=== PATIENT | female | born 1960 | race Caucasian/White ===

== ENCOUNTER → 2017-06-19 | Outpatient (CLI) | payer OTHER ==
[~2017-06-19] MED LIST: ADVIL MIGRAINE200 MG PO; ALBUTEROL; CARDIZEM LA360 MG PO; CIPROFLOXACIN500 M1 PO; CLONAZEPAM; COLCHICINE 0.60.6 M2 PO; DIOVAN160 MG PO; DYAZIDE 37.5-21 EACH PO; GLUCOPHAGE500 MG PO; IBUPROFEN 800800 M1 PO; INDOMETHACIN 2525 MG PO; LEXAPRO20 MG PO; MEDROL DOSPAK21 TA1 PO; NORCO 5-325 TA1 EACH PO; PRILOSEC 20 MG20 MG; PROAIR HFA8.5 GM IH; PYRIDIUM200 MG PO; SEREVENT DISKU50 MCG IH; SINGULAIR 10 MG10 MG PO; TYLENOL SINUS1 EAC1 PO; ZPAK PO; [UNRECOGNIZED DRUG - OTHER] IM
--- NOTE | 2017-06-19 14:41 | 2DMMODE ---
[place] [address] 2 D/M-MODE ECHOCARDIOGRAM Name: KARYN MCCORMICK Room: [facility]#: [id number] Admission: 06/19/17 Attend Phys: Margarito Clemons MD Discharge: Date of : 56 Date of Service: 06/19/17 1441 Report #: [id number] THIS REPORT FOR: //name// APPROVED REPORT Study performed: 06/19/2017 13:42:14 EXAM: Comprehensive 2D, Doppler, and color-flow Echocardiogram BSA: 2.51 HR: 96 bpm Other Information Study Quality: Adequate Indications Hypertension/HDD 2D Dimensions LVEF(%): 71.57 (>50%) IVSd: 13.06 (7-11mm) LVOT Diam: 20.95 (18-24mm) LVDd: 48.40 mm PWd: 10.94 (7-11mm) Ascending Ao: 30.64 (22-36mm) LVDs: 28.61 (25-40mm) Aortic Root: 29.42 mm Escalera's LVEF: 71.57 % Volumes Left Atrial Volume (Systole) LA ESV Index: 11.40 mL/m2 Aortic Valve AoV Peak Bud.: 1.40 m/s AO Peak Gr.: 7.80 mmHg LVOT Max P.31 mmHg AO Mean Gr.: 3.91 mmHg LVOT Mean P.03 mmHg LVOT Max V: 1.04 m/s AO V2 VTI: 19.60 cm LVOT Mean V: 0.65 m/s HEATHER (VTI): 2.78 cm2 LVOT V1 VTI: 15.81 cm Mitral Valve E/A Ratio: 0.76 MV Decel. Time: 198.91 ms MV E Max Bud.: 0.60 m/s MV PHT: 57.68 [place] [address] 2 D/M-MODE ECHOCARDIOGRAM Name: KARYN MCCORMICK Brian Room: [facility]#: [id number] Admission: 06/19/17 Attend Phys: Margarito Clemons MD Discharge: Date of : 56 Date of Service: 06/19/17 1441 Report #: [id number] MVA (PHT): 3.81 cm2 TDI E/Lateral E': 5.45 E/Medial E': 6.67 Medial E' Bud.: 0.09 m/s Lateral E' Ubd.: 0.11 m/s Pulmonary Valve PV Peak Bud.: 1.11 m/s PV Peak Gr.: 4.89 mmHg Left Ventricle The left ventricle is normal size. There is normal LV segmental wall motion. There is normal left ventricular wall thickness. Left ventricular systolic function is normal. The left ventricular ejection fraction is within the normal range. LVEF is 65%. Grade I - abnormal relaxation pattern. Right Ventricle The right ventricle is normal size. The right ventricular systolic function is normal. Atria The left atrium size is normal. The right atrium size is normal. Aortic Valve Mild aortic valve sclerosis. Mild aortic regurgitation. There is no aortic valvular stenosis. Mitral Valve The mitral valve is normal in structure. Trace mitral regurgitation. No evidence of mitral valve stenosis. Tricuspid Valve The tricuspid valve is normal in structure. There is no tricuspid valve regurgitation noted. Pulmonic Valve The pulmonary valve is normal in structure. Trace pulmonic regurgitation. Great Vessels The aortic root is normal in size. IVC is normal in size and collapses with >50% [place] [address] 2 D/M-MODE ECHOCARDIOGRAM Name: KARYN MCCORMICK Brian Room: [facility]#: [id number] Admission: 06/19/17 Attend Phys: Margarito Clemons MD Discharge: Date of : 56 Date of Service: 06/19/17 1441 Report #: [id number] There is no pericardial effusion. <Conclusion> The left ventricle is normal size. There is normal left ventricular wall thickness. Left ventricular systolic function is normal. The left ventricular ejection fraction is within the normal range. LVEF is 65%. Grade I - abnormal relaxation pattern. The right ventricle is normal size. The left atrium size is normal. Mild aortic valve sclerosis. Mild aortic regurgitation. There is no aortic valvular stenosis. The mitral valve is normal in structure. Trace mitral regurgitation. The tricuspid valve is normal in structure. IVC is normal in size and collapses with >50% inspiration There is no pericardial effusion. There is normal LV segmental wall motion. <ELECTRONICALLY SIGNED> By: Kike George MD, [facility] 06/19/17 1441 [id number] Kike George MD, FACC /INF
== END ==
LOC: M.CRD 11:16
DX: I10 Essential (primary) hypertension (principal); I35.1 Nonrheumatic aortic (valve) insufficiency

== ENCOUNTER → 2017-11-01 | Outpatient (CLI) | payer OTHER ==
[2017-11-01 09:37] LABS: HEMATOCRIT 39.8 % (37.0-47.0); HEMOGLOBIN 13.8 gm/dL (12.0-15.0); MCH 32.8 pg (26.0-34.0); MCHC 34.8 g/dL (28.0-37.0); MCV 94.4 fL (80.0-100.0); MPV 7.3 fl. (7.2-11.1); RBC 4.22 mil/uL (4.20-5.00); RDW-CV 12.7 % (10.5-14.5); WBC 4.5 thou/uL (4.0-11.0)
[2017-11-01 09:41] LABS: CALCIUM 9.4 mg/dL (8.5-10.1); CREATININE 0.9 mg/dL (0.6-1.3); POTASSIUM 3.8 mmol/L (3.5-5.1)
== END ==
LOC: M.LAB 09:19
DX: D69.6 Thrombocytopenia, unspecified (principal)

== ENCOUNTER → 2018-01-01 | Outpatient (CLI) | payer OTHER | LOC: M.RAD 13:01 | DX: Z12.31 Encounter for screening mammogram for malignant neoplasm of breast (principal); J45.909 Unspecified asthma, uncomplicated; I10 Essential (primary) hypertension; F32.9 Major depressive disorder, single episode, unspecified; C18.9 Malignant neoplasm of colon, unspecified ==

== ENCOUNTER 2018-06-29 00:27 | Emergency (ER) | payer BC, OTHER ==
[~2018-06-29] VITALS: Ht 177.8 cm; Wt 133.6 kg
[2018-06-29 00:41] VITALS: BP 136/61
[2018-06-29] MEDS ORDERED: ZOFRAN ODT4 MG DISSOLVE (00:56)
[2018-06-29] MEDS ORDERED: SOMATULINE60 MG/0.2 (00:56)
[2018-06-29 02:08] LABS: URINE BILIRUBIN NEGATIVE (Negative); URINE BLOOD NEGATIVE (Negative); URINE CLARITY CLEAR; URINE COLOR YELLOW; URINE GLUCOSE-RANDOM 2+ (Negative); URINE KETONES TRACE (Negative); URINE LEUKOCYTES-REFLEX NEGATIVE (Negative); URINE NITRITE-REFLEX NEGATIVE (Negative); URINE PROTEIN NEGATIVE (Negative); URINE SPECIFIC GRAVITY >= 1.030 (1.005-1.030); URINE UROBILINOGEN 0.2 E.U./dl (0.2-1.0)
[2018-06-29] MEDS ORDERED: PERCOCET 7.5-31 EACH PO (04:23)
[2018-06-29] MEDS ORDERED: FLEXERIL PO (04:23)
[2018-06-29 04:44] VITALS: BP 150/69
== END 2018-06-29 04:47 | disposition home or self-care (01) ==
LOC: M.ERS 00:27 → M.TBA-ER 04:14 → M.ERS 04:14
PROVIDERS: Emergency Medicine
DX: M54.5 Low back pain (principal); J45.909 Unspecified asthma, uncomplicated; F32.9 Major depressive disorder, single episode, unspecified; I10 Essential (primary) hypertension; Z88.8 Allergy status to other drugs, medicaments and biological substances; Z88.1 Allergy status to other antibiotic agents; Z88.5 Allergy status to narcotic agent; Z85.038 Personal history of other malignant neoplasm of large intestine

== ENCOUNTER → 2018-07-01 | Outpatient (CLI) | payer BC, OTHER ==
[~2018-07-01] MED LIST changes: +FLEXERIL PO; +HYDROCHLOROTHIA25 M2 PO; +PERCOCET 7.5-31 EACH PO; +PREDNISONE 10 M10 MG PO; +SOMATULINE60 MG/0.2; +ZOFRAN ODT4 MG DISSOLVE; +ZYRTEC10 M5 PO
== END ==
LOC: M.MRI 16:42
DX: M47.26 Other spondylosis with radiculopathy, lumbar region (principal); M51.27 Other intervertebral disc displacement, lumbosacral region; J45.909 Unspecified asthma, uncomplicated; I10 Essential (primary) hypertension; Z88.8 Allergy status to other drugs, medicaments and biological substances; Z88.5 Allergy status to narcotic agent; Z90.49 Acquired absence of other specified parts of digestive tract; Z90.710 Acquired absence of both cervix and uterus; Z98.84 Bariatric surgery status; Z82.49 Family history of ischemic heart disease and other diseases of the circulatory system; Z83.3 Family history of diabetes mellitus; Z82.5 Family history of asthma and other chronic lower respiratory diseases

== ENCOUNTER 2018-07-02 13:52 | Emergency (ER) | payer BC, OTHER ==
[~2018-07-02] VITALS: Ht 177.8 cm; Wt 131.5 kg
[~2018-07-02 13:52] MED LIST changes: -HYDROCHLOROTHIA25 M2 PO; -PREDNISONE 10 M10 MG PO; -ZYRTEC10 M5 PO
[2018-07-02] MEDS ORDERED: PREDNISONE 10 M10 MG PO (14:04)
[2018-07-02] MEDS ORDERED: HYDROCHLOROTHIA25 M2 PO (14:05)
[2018-07-02] MEDS ORDERED: ZYRTEC10 M5 PO (14:05)
[2018-07-02 17:59] VITALS: BP 161/83
== END 2018-07-02 17:59 | disposition short-term general hospital (02) ==
LOC: M.ERS 13:52
DX: M54.41 Lumbago with sciatica, right side (principal); J45.909 Unspecified asthma, uncomplicated; F32.9 Major depressive disorder, single episode, unspecified; I10 Essential (primary) hypertension; Z88.8 Allergy status to other drugs, medicaments and biological substances; Z88.1 Allergy status to other antibiotic agents; Z88.5 Allergy status to narcotic agent; Z85.038 Personal history of other malignant neoplasm of large intestine

== ENCOUNTER → 2018-08-13 | Outpatient (CLI) | payer OTHER, BC ==
[~2018-08-13] MED LIST changes: +HYDROCHLOROTHIA25 M2 PO; +PREDNISONE 10 M10 MG PO; +ZYRTEC10 M5 PO
--- NOTE | 2018-08-13 14:35 | 2DMMODE ---
[place] [address] 2 D/M-MODE ECHOCARDIOGRAM Name: JACEKARYN ELAYNE Room: [facility]#: [id number] Admission: 08/13/18 Attend Phys: Analisa West Discharge: Date of : 56 Date of Service: 08/13/18 1435 Report #: [id number] THIS REPORT FOR: //name// APPROVED REPORT Study performed: 08/13/2018 13:02:50 EXAM: Comprehensive 2D, Doppler, and color-flow Echocardiogram Patient Location: Out-Patient BSA: 2.38 HR: 110 bpm BP: 120/60 mmHg Other Information Study Quality: Good Indications Murmur Dyspnea 2D Dimensions IVSd: 12.87 (7-11mm) LVOT Diam: 20.49 (18-24mm) LVDd: 42.69 mm PWd: 11.40 (7-11mm) Ascending Ao: 34.06 (22-36mm) LVDs: 24.47 (25-40mm) Aortic Root: 30.83 mm Volumes Left Atrial Volume (Systole) LA ESV Index: 10.60 mL/m2 Aortic Valve AoV Peak Bud.: 1.28 m/s AO Peak Gr.: 6.53 mmHg LVOT Max P.41 mmHg AO Mean Gr.: 3.49 mmHg LVOT Mean P.37 mmHg LVOT Max V: 1.05 m/s AO V2 VTI: 16.55 cm LVOT Mean V: 0.72 m/s HEATHER (VTI): 2.87 cm2 LVOT V1 VTI: 14.42 cm Mitral Valve E/A Ratio: 0.60 MV Decel. Time: 171.97 ms MV E Max Bud.: 0.47 m/s MV PHT: 49.87 [place] [address] 2 D/M-MODE ECHOCARDIOGRAM Name: JACEKARYN ELAYNE Room: [facility]#: [id number] Admission: 08/13/18 Attend Phys: Analisa West Discharge: Date of : 56 Date of Service: 08/13/18 1435 Report #: [id number] MVA (PHT): 4.41 cm2 TDI E/Lateral E': 6.71 E/Medial E': 5.88 Medial E' Bud.: 0.08 m/s Lateral E' Bud.: 0.07 m/s Pulmonary Valve PV Peak Bud.: 1.10 m/s PV Peak Gr.: 4.84 mmHg Left Ventricle The left ventricle is normal size. There is normal LV segmental wall motion. There is normal left ventricular wall thickness. Left ventricular systolic function is normal. LVEF is 65-70%. Grade I - abnormal relaxation pattern. Right Ventricle The right ventricle is normal size. The right ventricular systolic function is normal. Atria The left atrium size is normal. The right atrium size is normal. Aortic Valve The aortic valve is normal in structure. Mild aortic regurgitation. There is no aortic valvular stenosis. Mitral Valve The mitral valve is normal in structure. There is no mitral valve regurgitation noted. No evidence of mitral valve stenosis. Tricuspid Valve The tricuspid valve is normal in structure. There is no tricuspid valve regurgitation noted. Pulmonic Valve The pulmonary valve is normal in structure. Mild pulmonic regurgitation. Great Vessels The aortic root is normal in size. IVC is normal in size and collapses >50% with inspiration. Pericardium There is no peric[place] [address] 2 D/M-MODE ECHOCARDIOGRAM Name: KARYN MCCORMICK ELAYNE Room: [facility]#: [id number] Admission: 08/13/18 Attend Phys: Analisa West Discharge: Date of : 56 Date of Service: 08/13/18 1435 Report #: [id number] <Conclusion> The left ventricle is normal size. There is normal left ventricular wall thickness. Left ventricular systolic function is normal. LVEF is 65-70%. Grade I - abnormal relaxation pattern. Mild aortic regurgitation. Mild pulmonic regurgitation. <ELECTRONICALLY SIGNED> By: Ryder Molina MD, FACC 08/13/18 1435 1435 1435 Ryder Molina MD, FACC /INF
== END ==
LOC: M.CRD 12:54
DX: I08.8 Other rheumatic multiple valve diseases (principal); J45.909 Unspecified asthma, uncomplicated; I10 Essential (primary) hypertension; E11.9 Type 2 diabetes mellitus without complications; Z88.8 Allergy status to other drugs, medicaments and biological substances; Z88.1 Allergy status to other antibiotic agents; Z88.5 Allergy status to narcotic agent; Z79.84 Long term (current) use of oral hypoglycemic drugs

== ENCOUNTER → 2018-10-10 | Outpatient (CLI) | payer OTHER, BC ==
[~2018-10-10] MED LIST changes: +AMITRIPTYLINE H10 M3 PO; +B12INJ IM; +CARDIZEM CD360 MG PO; +COZAAR 25 MG TA25 M1 PO; +FOLGARD TABLET1 EAC1 PO; +METFORMIN HCL500 MG PO; +NEURONTIN 300300 M1 PO; +TYLENOL EXTRA500 MG PO; +ZYLOPRIM300 MG PO
--- NOTE | ~2018-10-10 | PAINCON ---
[address] [address] PAIN MANAGEMENT CONSULTATION Name: JACEKARYNMATTHIEU HOLLY Room: [facility] Negron#: [id number] Admission: 10/10/18 Attend Phys: Jenifer Gonzalez MD Discharge: Date of : 56 Report #: [id number] THIS REPORT FOR: //name// CC: Analisa Gonzalez DATE OF SERVICE: 10/10/2018 CHIEF COMPLAINT: Right hip discomfort and low back pain. HISTORY OF PRESENT ILLNESS: The patient is a 58-year-old female who has been referred to the pain clinic for evaluation. The patient had an episode of low back pain in August. She describes it as severe with spasms. She has had some jolting pain, which radiates from her right thigh. The patient noticed a few weeks ago, pain, which was quite severe. It continued to be problematic. She went to the Emergency Room. An MRI was performed. The patient's pain still was quite problematic. No obvious cause was noted. Because of the severity of her pain, she sought additional treatment. She was seen at [facility]. She was evaluated by a neurosurgeon as well as an orthopedic surgeon. No significant pathology, which would warrant surgery was noted at those times. Because of the pain that was radiating down the lateral portion of her leg, the orthopedic resident felt that she was suffering from meralgia paresthetica. The pain physician, Dr. Perales was contacted. After a period of time, a block of the right lateral femoral cutaneous nerve was performed. She noticed some significant improvement in her pain. She is having less discomfort in this area. She still has some numbness and tingling in the distribution of the left lateral femoral nerve. She continues to have some pain in her low back. She states that she has been told that she has some degenerative joint disease involving her back. She has been using gabapentin. She was using it 300 mg t.i.d. The middle dose in the afternoon was causing some increased sedation. She is now using it 300 mg twice daily. She rarely uses Percocet. Did not find that this had significant benefit on the current pain. She has history of cancer. States that she also has problems with low platelets. Platelets are about 100,000 at this juncture. She is being treated for about the third course for a urinary tract infection. She was on 60 mg prednisone dosing and has been titrated from that. ALLERGIES: AMLODIPINE CAUSES SWELLING, CEPHALOSPORINS. NOT TOLERATED WELL WERE CIPRO AND MORPHINE. CURRENT MEDICATIONS: Percocet has been used rarely, Tylenol p.r.n., gabapentin 300 mg 1 p.o. b.i.d., Lexapro 20 mg, Cardizem 360 mg, hydrochlorothiazide 25 mg every other day, metformin 1000 mg, Klonopin 1 mg. MEDICATIONS: Zofran 4 mg p.r.n., Imodium p.r.n., vitamin B12 1000 mg every 3-1/2 months, vitamin D3 1000 mg 3-1/2 months, losartan 50 mg b.i.d. 18 months, [address] [place] [address] PAIN MANAGEMENT CONSULTATION Name: KARYN MCCORMICK Room: [facility]#: [id number] Admission: 10/10/18 Attend Phys: Jenifer Gonzalez MD Discharge: Date of : 56 Report #: [id number] allopurinol 300 mg, Singulair 10 mg, Bactrim for urinary tract 7 days. Cancer medicine, lanreotide injections q.4 weeks. 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 PAST SURGICAL HISTORY: 1. In 2007; colon resection, liver ablation, carcinoid cancer. 2. Cholecystectomy in 1978, tonsillectomy at age 3 inches, appendectomy at age 11, gastric sleeve in 2013. 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 REVIEW OF SYSTEMS: Weight change, occasional headache, wears glasses, cataracts/glaucoma, shortness of breath on walking, occasional wheezing with asthma, shortness of breath, nausea, abdominal pain, stiffness of the joints, joint pain, weakness of muscles and joints, muscle cramps, back pain, itching from some medications, frequent recurring headaches, lightheadedness, dizziness, numbness and tingling sensation, depression, easy bruising, past transfusions. PAIN CLINIC ASSESSMENT AND PQRS 1. History of osteoarthritis. The patient is not being treated for osteoarthritis. She has not been treated for rheumatoid arthritis. 2. Height 5 feet 10 inches, weight 284 pounds, BMI is 40. 3. Vital signs: Blood pressure 145/72, heart rate 106, respiratory rate 18, room air saturation 95%, temperature 98.2. 4. Pain intensity 10. 5. Fall history: The patient has not fallen in the last 3 months. 6. Blood thinner. The patient is not on a blood thinning medication, but does have low platelets above 100,000. 7. Hypertension. The patient is being treated for hypertension. 8. Opioids greater than 6 weeks. The patient uses opioid medication somewhat on occasion. 9. Risk assessment tool, low for opioid use. 10. Functional assessment tool, 46/70. 11. Recreational drug use, the patient denies. 12. Tobacco: The patient denies use of tobacco. 13. Alcohol: The patient denies use of alcoholic beverages. PHYSICAL EXAMINATION: GENERAL: The patient is a well-developed, well-nourished, white female. Morbidly obese. She is alert and oriented x 3. Affect is appropriate. Speech is fluent. HEENT: Normocephalic, atraumatic. Extraocular eye [place] [address] PAIN MANAGEMENT CONSULTATION Name: KARYN MCCORMICK Room: [facility]#: [id number] Admission: 10/10/18 Attend Phys: Jenifer Gonzalez MD Discharge: Date of : 56 Report #: [id number] nonicteric. Mucous membranes are moist. NECK: Without adenopathy or JVD. HEART: Regular rate. ABDOMEN: Nontender. Bowel sounds present. EXTREMITIES: Upper extremity muscle strength judged to be 5/5 for the major muscle groups in the upper extremity. Deep tendon reflexes are trace for the biceps bilaterally. The patient without significant scoliosis, kyphosis or lordosis. Notes some pain and discomfort in the lower portion of her back near the left as well as the right L4 paraspinous muscle area down to the sacrum. The patient has some decreased sensation in the area of the right lateral femoral cutaneous nerve. Had pain that radiated from the lateral hip area down to the anterior portion of her thigh and this is less problematic. She has been experiencing some lancinating pain and is not having that as often. The patient has some difficulty rising to her toes. Has some difficulty rising on her heels. Deep tendon reflexes are trace to absent at the knees bilaterally. Carson's maneuver notes some increased discomfort in the right low back area, not as problematic on the left. IMPRESSION: 1. Meralgia paresthetica improved after a right lateral femoral cutaneous nerve block. 2. Diabetes. 3. Bruising tendencies. 4. Low platelets. 5. Asthma. 6. Hypertension. 7. Liver disease. 8. Hepatitis. 9. Gallbladder disease. 10. Colon problems. 11. Arthritis. 12. Cancer. 13. Crohn's disease. 14. Essential hypertension. 15. Metastatic malignant neuroendocrine tumor to the liver. 16. Morbid obesity. RECOMMENDATIONS: We discussed treatment options with the patient. She feels that her pain has improved after the lateral femoral cutaneous block. Still has some shooting/lancinating pain. At this point, I think it would be reasonable to try Elavil. This medication has been quite helpful in painful conditions, particularly with lancinating pain. We will have her try 10 mg and increase this as we have directed. Hopefully, she will note that her pain improves as well as an improvement in her sleep. She notes that the gabapentin medication taking it 3 times daily cause some somnolence in the afternoon. She will take the 300 mg in the morning and takes 600 mg at night[place] [address] PAIN MANAGEMENT CONSULTATION Name: KARYN MCCORMICK Room: [facility] Negron#: [id number] Admission: 10/10/18 Attend Phys: Jenifer Gonzalez MD Discharge: Date of : 56 Report #: [id number] to find that the medication is helpful, but still has some problems with sleepiness, we will consider trying use of Gralise. A script for gabapentin 300 mg 1 p.o. t.i.d. has been rewritten for 90 days. The patient will call us if she has any concerns. A script for oxycodone 5/325 1 p.o. b.i.d. or q.4 hours p.r.n. has been written as well. The patient has been given a script for amitriptyline 10 mg 60 tablets. We would like to thank you for letting us participate in her care. We hope she continues to improve. By: [id number]. Jonny Gonzalez MD /JOSÉ MIGUEL
== END ==
LOC: M.PC 11:50
DX: G57.11 Meralgia paresthetica, right lower limb (principal); E11.9 Type 2 diabetes mellitus without complications; J45.909 Unspecified asthma, uncomplicated; I10 Essential (primary) hypertension; K76.9 Liver disease, unspecified; C7A.8 Other malignant neuroendocrine tumors; K82.9 Disease of gallbladder, unspecified; C22.8 Malignant neoplasm of liver, primary, unspecified as to type; M19.90 Unspecified osteoarthritis, unspecified site; E66.9 Obesity, unspecified; K75.9 Inflammatory liver disease, unspecified

== ENCOUNTER → 2018-10-22 | Outpatient (CLI) | payer OTHER, BC ==
[~2018-10-22] MED LIST changes: +AMITRIPTYLINE H25 M2 PO
--- NOTE | 2018-10-30 16:33 | PAINCON ---
[address] [address] PAIN MANAGEMENT CONSULTATION Name: JACEKARYNMATTHIEU HOLLY Room: [facility].R.#: [id number] Admission: 10/22/18 Attend Phys: Jenifer Gonzalez MD Discharge: Date of : 56 Report #: [id number] THIS REPORT FOR: //name// CC: Analisa Gonzalez DATE OF SERVICE: 10/22/2018 CHIEF COMPLAINT: Pain in the right side of the leg with numbness. HISTORY: The patient is a 58-year-old female who has been followed in the pain clinic because of chronic pain involving the right leg. The patient states that she is having pain that is radiating down the right side. There is a jolting type of discomfort. It is numb, but painful. She underwent an injection at [facility]. A lateral femoral nerve injection was performed by the pain doctor. The pain improved. She has noticed some increasing pain with numbness and tingling again. She has returned to the pain clinic with the hope of undergoing another injection to help quell and decrease the pain and discomfort. She has a history of cancer. Her platelets have been somewhat low. They are about 75,000 today. ALLERGIES: AMLODIPINE CAUSES SWELLING, CEPHALOSPORIN, NOT TOLERATED WELL. MEDICATIONS: Cipro and morphine. CURRENT MEDICATIONS: Percocet has been used rarely, Tylenol p.r.n., gabapentin 300 mg b.i.d., Lexapro 20 mg, Cardizem 360 mg, hydrochlorothiazide 25 mg daily, metformin 1000 mg, Klonopin 1 mg, amitriptyline a total of 40 mg at bedtime. Zofran 4 mg p.r.n., Imodium p.r.n., vitamins B12 1000 mg every 3-1/2 months, vitamin D3 3-1/2 months, losartan 50 mg b.i.d. 18 months, allopurinol 300 mg, Singulair 10 mg, Bactrim for urinary tract infections in the past, cancer medications, lanreotide injections every 4 weeks. PAIN CLINIC ASSESSMENT AND PQRS: 1. The patient is not being treated for osteoarthritis. The patient is not being treated for rheumatoid arthritis. 2. Height 5 feet 10 inches, weight 288 pounds, BMI is 41.1. 3. Vital Signs: Blood pressure 149/70, heart rate 95, respiratory rate 18, temperature 98.2. 4. Pain intensity, 3-4/10. 5. Fall history. The patient has not fallen in the last 3 months. 6. Blood thinner. The patient is not on a blood thinning medication. 7. Platelets. The patient has platelets down from 100,000-75,000. 8. Hypertension. The patient is being treated for hypertension. 9. Opioids greater than 6 weeks. The patient is [place] [address] PAIN MANAGEMENT CONSULTATION Name: KARYN MCCORMICK [id number] Admission: 10/22/18 Attend Phys: Jenifer Gonzalez MD Discharge: Date of : 56 Report #: [id number] 10. Risk assessment tool, low for opioid use. 11. Functional assessment tool, . 12. Recreational drug use. The patient denies. 13. Tobacco: The patient denies use of tobacco. 14. Alcohol: The patient denies use of alcoholic beverages. PHYSICAL EXAMINATION: GENERAL: The patient is a well-developed, well-nourished, morbidly obese, white female, appears her stated age. She is alert and oriented x 3. Her affect is appropriate. Speech is fluent. HEENT: Normocephalic, atraumatic. Extraocular eye muscles intact. Sclerae nonicteric. Mucous membranes are moist. NECK: Without adenopathy or JVD. HEART: Regular rate. ABDOMEN: Protuberant. Bowel sounds present. MUSCULOSKELETAL: Upper extremity muscle strength is judged to be 5/5 for the major muscle groups in the upper extremity. Deep tendon reflexes trace for the biceps. The patient has pain and discomfort in the right lateral portion of her leg with numbness and pain. Muscle strength to the lower extremities judged to be 5/5 for the major muscle groups in the lower extremity and 5/5 for the major muscle groups in the upper extremity. IMPRESSION: 1. Meralgia paresthetica improved with lateral femoral cutaneous nerve block. 2. Diabetes. 3. Easy bruising tendencies. 4. Low platelets. 5. Asthma. 6. Hypertension. 7. Liver disease. 8. Hepatitis. 9. Gallbladder disease. 10. Colon problems. 11. Arthritis. 12. Cancer. 13. Crohn's disease. 14. Essential hypertension. 15. Metastatic malignant neuroendocrine tumor to the liver. 16. Morbid obesity. RECOMMENDATIONS: We discussed treatment options with the patient. At this juncture, she feels that the Elavil medication has been helpful. She is taking 40 mg daily. Notes that there has been some improvement in the pain. She has had no complications from the Elavil use. She finds that the opioid medications can be helpful. Oxycodone 7.5 mg has been helpful with the pain. She feels that overall things are improving. She would like to proceed with a [address] [place] [address] PAIN MANAGEMENT CONSULTATION Name: JACEKARYN HOLLY Room: [facility] M.Aaron.#: [id number] Admission: 10/22/18 Attend Phys: Jenifer Gonzalez MD Discharge: Date of : 56 Report #: [id number] femoral cutaneous injection today. We have discussed the risks and benefits of the procedure. They include but are not limited to infection, worsening of pain, no improvement in pain, bleeding, infection, and the patient elects to proceed. PROCEDURE NOTE: The patient was taken to the procedure area. She was then assisted in getting on the table. She was laid in the supine position. Her abdomen was sterilely prepped on the right side with a chlorhexidine solution and allowed to dry. The anterior superior iliac spine was noted on the right. Palpation in this area did indicate the spinous process area of the superior iliac spine on the right. Approximately 2 cm medial and 2 cm below the inguinal line were noted. A skin wheal was placed using 0.25% bupivacaine and a 25-gauge needle. A 22-gauge needle was then advanced into the area near the left lateral femoral cutaneous. The patient states that she did feel the sensation with needle placement in that area. Aspiration was negative. A total of 40 mg Depo-Medrol and 12 mL of 0.25% bupivacaine was injected. The patient tolerated the procedure well. There were no complications. Pain decreased from 4-1 at the time of discharge. She will follow up in the future. We have rewritten the patient's amitriptyline. She will take 25 mg 2 tablets at bedtime. We explained that the use of this medication can be quite helpful with nerve pain. We will increase it as she is able to tolerate it. We would like to thank you for letting us participate in her care. We hope she continues to improve. <ELECTRONICALLY SIGNED> By: Jenifer Gonzalez MD 10/30/18 1633 [id number] [id number]. Jonny Gonzalez MD /[facility]
== END | disposition home or self-care (01) ==
LOC: M.PC 05:01
DX: G57.11 Meralgia paresthetica, right lower limb (principal); G89.29 Other chronic pain; E11.9 Type 2 diabetes mellitus without complications; J45.909 Unspecified asthma, uncomplicated; I10 Essential (primary) hypertension; K75.9 Inflammatory liver disease, unspecified; M19.90 Unspecified osteoarthritis, unspecified site; K50.90 Crohn's disease, unspecified, without complications; E66.01 Morbid (severe) obesity due to excess calories; Z88.8 Allergy status to other drugs, medicaments and biological substances; Z79.899 Other long term (current) drug therapy; Z79.84 Long term (current) use of oral hypoglycemic drugs; Z68.41 Body mass index [BMI] 40.0-44.9, adult

== ENCOUNTER 2018-12-04 10:56 | Observation (INO) | payer OTHER, BC ==
[~2018-12-04] VITALS: Ht 177.8 cm; Wt 129.1 kg
[~2018-12-04 10:56] MED LIST changes: -CLONAZEPAM; +CLONAZEPAM 1 MG1 M1 PO
[2018-12-04 11:03] VITALS: BP 165/79
[2018-12-04 11:28] LABS: ABSOLUTE LYMPHOCYTES 0.6 thou/uL (0.8-5.3); ABSOLUTE MONOCYTES 0.4 thou/uL (0.0-1.2); ABSOLUTE NEUTROPHILS 3.9 thou/uL (1.6-8.1); BASOPHILS 0.8 %; EOSINOPHILS 0.4 %; HEMOGLOBIN 11.8 gm/dL (12.0-15.0); LYMPHOCYTES 11.6 %; MCH 33.1 pg (26.0-34.0); MCHC 34.7 g/dL (28.0-37.0); MCV 95.3 fL (80.0-100.0); MONOCYTES 7.8 %; MPV 7.2 fl. (7.2-11.1); NUCLEATED RBCS 0 /100WBC; PLATELET COUNT* 174 thou/uL (150-400); POLYS 79.4 %; RBC 3.57 mil/uL (4.20-5.00); RDW-CV 12.6 % (10.5-14.5)
[2018-12-04 11:33] LABS: ANION GAP 17 mmol/L (7-16); BUN 11 mg/dL (7-18); CALCIUM 9.3 mg/dL (8.5-10.1); CHLORIDE 94 mmol/L (98-107); CO2 24 mmol/L (21-32); CREATININE 1.2 mg/dL (0.6-1.3); GLUCOSE 200 mg/dL (70-99); SODIUM 135 mmol/L (136-145)
[2018-12-04 11:34] LABS: POTASSIUM 2.9 mmol/L (3.5-5.1)
[2018-12-04 11:36] LABS: APTT 32.4 Seconds (25.0-31.3); PROTIME 10.7 Seconds (9.20-11.50)
[2018-12-04 11:44] LABS: ALBUMIN 3.6 g/dL (3.4-5.0); ALKALINE PHOSPHATASE 97 U/L (46-116); NT-PRO BRAIN NAT PEPTIDE 30 pg/mL (<300); SGOT 24 U/L (15-37); SGPT 18 U/L (30-65); TOTAL BILIRUBIN 0.4 mg/dL (<0.1-1.0); TOTAL PROTEIN 8.3 g/dL (6.4-8.2); TROPONIN-I LEVEL <0.06 ng/mL (<0.06)
[2018-12-04 11:53] LABS: URINE BLOOD NEGATIVE (Negative); URINE CLARITY CLEAR; URINE COLOR YELLOW; URINE GLUCOSE-RANDOM NEGATIVE (Negative); URINE KETONES NEGATIVE (Negative); URINE LEUKOCYTES-REFLEX NEGATIVE (Negative); URINE NITRITE-REFLEX NEGATIVE (Negative); URINE PROTEIN NEGATIVE (Negative); URINE UROBILINOGEN 0.2 E.U./dl (0.2-1.0)
[2018-12-04 11:54] LABS: ICTOTEST (BILI CONFIRMATORY) Negative (Negative); URINE BILIRUBIN 1+ (Negative)
[2018-12-04 17:35] VITALS: BP 100/38
--- NOTE | 2018-12-04 18:33 | NUR ---
VSS, ASSUMED CARE OF PT FROM ER, PT IS A&O4. ON 2L NC TRACING SR ON MONITOR, UP AD MIKEL, DENIES ANY PAIN, FALL PRECAUTIONS IN PLACE AND CALL LIGHT IN REACH.
[2018-12-04 18:36] VITALS: BP 114/50
[2018-12-04 20:15] VITALS: BP 96/37
[2018-12-05] VITALS: BP 116/57
[2018-12-05 04:00] VITALS: BP 110/57
[2018-12-05 04:41] LABS: ABSOLUTE LYMPHOCYTES 0.7 thou/uL (0.8-5.3); ABSOLUTE MONOCYTES 0.4 thou/uL (0.0-1.2); ABSOLUTE NEUTROPHILS 1.5 thou/uL (1.6-8.1); BASOPHILS 0.5 %; EOSINOPHILS 1.2 %; LYMPHOCYTES 25.9 %; MCH 33.1 pg (26.0-34.0); MCHC 34.4 g/dL (28.0-37.0); MCV 96.3 fL (80.0-100.0); MONOCYTES 16.6 %; MPV 6.7 fl. (7.2-11.1); NUCLEATED RBCS 0 /100WBC; PLATELET COUNT* 122 thou/uL (150-400); POLYS 55.8 %; RBC 2.71 mil/uL (4.20-5.00); RDW-CV 12.9 % (10.5-14.5); WBC 2.6 thou/uL (4.0-11.0)
[2018-12-05 04:54] LABS: CALCIUM 8.3 mg/dL (8.5-10.1); CREATININE 0.8 mg/dL (0.6-1.3); MAGNESIUM 1.4 mg/dL (1.8-2.4); PHOSPHORUS* 1.8 mg/dL (2.5-4.9); POTASSIUM 3.9 mmol/L (3.5-5.1)
--- NOTE | 2018-12-05 05:40 | NUR ---
ASSUMED PATIENT CARE AT 1900. PATIENT ALERT AND ORIENTED TIMES FOUR. UP AD MIKEL. NO COMPLAINTS OF PAIN OR DISCOMFORT NOTED. 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
[2018-12-05 08:30] VITALS: BP 117/51
[2018-12-05 11:47] VITALS: BP 149/67
[2018-12-05 15:49] VITALS: BP 135/65
[2018-12-05] MEDS ORDERED: PRENATAL PO (15:49)
[2018-12-05] MEDS ORDERED: BACTRIM DS TAB1 EACH PO (15:50)
--- NOTE | 2018-12-05 16:21 | NUR ---
ASSUSSMED CARE OF PT APPROX 0730. REASSESSMENT COMPLETED CHARTED/ MEDICATIONS GIVEN CHARTED. PT DENIES PAIN. PT EDUCATION ABOUT MEDICATIONS RECIEVING. PT VERBALIZED UNDERSTANDING. PT STATES SHE FEELS MUCH BETTER NOW.
--- NOTE | 2018-12-05 17:58 | EKG ---
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: : 1960 Requested By: Darrian Penn Order Number: [id number] MD: Hans Mendoza Measurements Intervals [address] Rate: 111 P: 39 [place]: 124 QRS: 48 QRSD: 85 T: 173 QT: 412 QTc: 560 Interpretive Statements Sinus tachycardia Nonspecific T abnormalities, lateral leads Prolonged QT interval Baseline wander in lead(s) V2,V6 Compared to ECG 11/29/2016 09:48:53 T-wave abnormality now present Prolonged QT interval now present Sinus rhythm no longer present Electronically Signed On 12-05-2018 17:57:54 CDT by Hans Mendoza [email or web address] <ELECTRONICALLY SIGNED> By: Alhaji Mendoza MD, FAC 12/05/18 1757 1111 1111 Alhaji Mendoza MD, FAC /EPI
[2018-12-05 18:06] VITALS: BP 135/65
--- NOTE | 2018-12-05 18:48 | NUR ---
DISCHARGE TEACHING COMPLETED. SCRIPT GIVEN. PT VERBALIZED UNDERSTANDING. PT ESCORTED OUT VIA WHEELCHAIR WITH STAFF, APPROX 1845.
--- NOTE | 2018-12-07 05:50 | CON ---
[address] [address] CONSULTATION Name: KARYN MCCORMICK Room: [address] Liya Negron#: [id number] Admission: 12/04/18 Attend Phys: Marley Mckee MD Discharge: 12/05/18 Date of : 56 Report #: [id number] THIS REPORT FOR: //name// CC: Analisa Mckee DATE OF SERVICE: 12/05/2018 INFECTIOUS DISEASE CONSULTATION ATTENDING PHYSICIAN: Dr. Mckee. REASON FOR EVALUATION: Few ____. HISTORY OF PRESENT ILLNESS: The patient is a 58-year-old woman with history of carcinoid, who actually has had a recurrence roughly a year ago, did undergo chemotherapy. She has not felt same since. She is followed on a regular basis by Dr. Mckenzie with Oncology. Over the course of last 3 weeks, she has been increasingly weak, felt lightheaded, did have some intermittent fevers, which have been high grade. She denied any significant head or neck complaints. She has occasional headache. No sinus complaints. No sore throat. No recent dental work or teeth issues. She does have bit of cough and dyspnea. Denies any gastrointestinal related complaints. She was evaluated and was found to have a lactic acidemia elevated at 5.5, albumin of 3.6. Urinalysis was otherwise unremarkable. It is notable that at some point in the recent last 10-14 days, she had been evaluated and felt to have urinary tract infection, was initially placed on ciprofloxacin which she was intolerant of and treated with Bactrim, which she has been on multiple occasions. She did experience a fall, which she attributes to weakness and lightheadedness. She was empirically given a dose of levofloxacin, continued on Bactrim. During her hospitalization, she has not had a documented temperature elevation. She was found to be pancytopenic, which she states has been something that has been trending based on her every 4-week blood draws from tree inspector/oncologist. At this point, she states she feels better. ALLERGIES: AMLODIPINE AND NONSTEROIDALS. MEDICATIONS: Currently include cyanocobalamin, metformin, folic acid, diltiazem CD, allopurinol, hydrochlorothiazide, montelukast, citalopram, gabapentin, enoxaparin, amitriptyline, losartan, clonazepam, Bactrim, ipratropium, albuterol inhaler, p.r.n. analgesics, and antiemetics. PAST MEDICAL HISTORY: Carcinoid, has had previous partial colectomy, hepatectomy as well, metastatic disease. She has had no evidence of relapse/recurrence in the last year. [place] [address] CONSULTATION Name: KARYN MCCORMICK ELAYNE Room: [address] Liya Negron#: [id number] Admission: 12/04/18 Attend Phys: Marley Mckee MD Discharge: 12/05/18 Date of : 56 Report #: [id number] SOCIAL HISTORY: Nonsmoker, no ethanol, and no illicit drug use. FAMILY HISTORY: Noncontributory. REVIEW OF SYSTEMS: Otherwise, unremarkable 10-point review of systems with exception of the above history of present illness. PHYSICAL EXAMINATION: GENERAL: She is alert, cooperative, appropriate, appears reasonably well nourished. VITAL SIGNS: Temperature 98.1, pulse 85, respirations 16, and blood pressure 149/67. SKIN: Warm and dry, no rashes. HEENT: Normocephalic. Extraocular muscles are intact. NECK: Supple. LUNGS: Generally clear to auscultation bilaterally. HEART: Regular. I do not appreciate murmur. ABDOMEN: Mildly obese, soft, and nontender. There are no peritoneal signs. EXTREMITIES: Lower extremity edema, there is no noted rashes. No synovitis or arthritis. GENITOURINARY AND RECTAL: Deferred. LABORATORY/RADIOLOGIC DATA: Blood cultures are sterile thus far. Electrolytes: Sodium 138, potassium 3.9, it is up from 2.9; chloride 101; bicarbonate is 28; anion gap of 9; BUN and creatinine 5 and 0.8; glucose of 189; and estimated GFR of 73. CBC: White count has peaked at 5, now down to 2.6, again ____ trend over a long period. Hemoglobin 9 and platelet count of 122. Differential showed a neutropenia of 1500 and lymphocytopenia of 700. Serial lactic acid 5.5, 2.7, 2.6. Troponins were otherwise unremarkable. CT chest was otherwise unremarkable, no evidence of acute process or PE. CT abdomen and pelvis, previous right hemicolectomy, lateral left hepatic lobe hepatectomy, no acute process. Liver functions otherwise unremarkable. Albumin is 3.6 and total protein is 8.3. ASSESSMENT AND PLAN: Febrile illness, roughly 3 weeks. At this point, she has been afebrile. She states she feels significantly better ____ component of dehydration. Would continue the Bactrim as prescribed. ____ track down those culture results. At this point, given the fact that she has improved in the awareness of pancytopenia, I am not sure there is any warranted reason to undergo a procedure. We will follow through with current approach certainly be available for followup as needed. <ELECTRONICALLY SIGNED> By: Kwadwo Alejandra MD 12/07/18 0550 1456 [id number] Alejandra MD /nt
== END 2018-12-05 18:45 | disposition home or self-care (01) ==
LOC: M.ERS 10:56 → M.TBA-ER 13:05 → M.2W 13:05
PROVIDERS: Family Medicine; ADMIT Family Medicine
DX: E86.0 Dehydration (principal); E87.6 Hypokalemia; R65.10 Systemic inflammatory response syndrome (SIRS) of non-infectious origin without acute organ dysfunction; I12.9 Hypertensive chronic kidney disease with stage 1 through stage 4 chronic kidney disease, or unspecified chronic kidney disease; N18.3 Chronic kidney disease, stage 3 (moderate); E11.22 Type 2 diabetes mellitus with diabetic chronic kidney disease; K52.9 Noninfective gastroenteritis and colitis, unspecified; J45.909 Unspecified asthma, uncomplicated; D72.819 Decreased white blood cell count, unspecified; E53.8 Deficiency of other specified B group vitamins; E83.39 Other disorders of phosphorus metabolism; C18.9 Malignant neoplasm of colon, unspecified; C78.7 Secondary malignant neoplasm of liver and intrahepatic bile duct; E83.42 Hypomagnesemia; N39.0 Urinary tract infection, site not specified; F32.9 Major depressive disorder, single episode, unspecified; Z98.84 Bariatric surgery status; Z88.6 Allergy status to analgesic agent; Z88.8 Allergy status to other drugs, medicaments and biological substances; Z79.84 Long term (current) use of oral hypoglycemic drugs; Z79.899 Other long term (current) drug therapy

== ENCOUNTER → 2019-01-07 | Outpatient (CLI) | payer OTHER, BC ==
[~2019-01-07] MED LIST changes: +BACTRIM DS TAB1 EACH PO; +PRENATAL PO
== END ==
LOC: M.RAD 11:08
DX: Z12.31 Encounter for screening mammogram for malignant neoplasm of breast (principal)

== ENCOUNTER → 2019-02-25 | Outpatient (CLI) | payer BC ==
[~2019-02-25] MED LIST changes: +TRAMADOL 50 MG50 MG PO
--- NOTE | 2019-03-12 13:30 | PAINCON ---
[address] [address] PAIN MANAGEMENT CONSULTATION Name: CECILYGUERDABrianKARYN ELAYNE Room: [facility] M.R.#: [id number] Admission: 02/25/19 Attend Phys: Jenifer Gonzalez MD Discharge: Date of : 56 Report #: [id number] THIS REPORT FOR: //name// CC: Analisa Rahman DATE OF SERVICE: 02/25/2019 CHIEF COMPLAINT: Return of right leg numbness. HISTORY: The patient is a 58-year-old female who has been seen in the pain clinic in the past because of right-sided leg pain. She had been diagnosed in the past with lateral femoral cutaneous nerve pain. Injections in the past have proven beneficial. She has noticed over the last 2 weeks a recurrence of her pain. There is numbness and tingling associated with it. It is along the right lateral portion of her leg. There is burning sensation. The patient states her platelet counts have been about 95,000. She has returned today with the hopes of undergoing a nerve injection to help calm the pain down. Previous one lasted for a number of months. ALLERGIES: AMLODIPINE CAUSES SWELLING, CEPHALOSPORIN IS NOT TOLERATED WELL. MEDICATIONS: Tylenol 500 mg p.r.n., allopurinol 300 mg, amitriptyline 10 mg at bedtime 2 tablets, Zyrtec 10 mg, Klonopin, Cardizem 360 mg, Lexapro 20 mg, Neurontin 300 mg, hydrochlorothiazide 25 mg, Somatuline Depot, Cozaar 25 mg b.i.d., Glucophage b.i.d., Singulair 10 mg, Zofran 4 mg, Percocet 7.5 mg q. 6 hours p.r.n., Folgard tablet, vitamin B12. PAIN CLINIC ASSESSMENT AND PQRS: 1. The patient is not being treated for osteoarthritis. She is not being treated for rheumatoid arthritis. 2. Height 5 feet 10 inches, weight 288 pounds, BMI is 41.1. 3. Vital signs: Blood pressure 149/78, heart rate 95, respiratory rate 20, room air saturation is 95%. 4. Temperature 98.2. 5. Pain intensity 10. 6. Fall history: The patient has not fallen in the last 3 months. 7. Blood thinner. The patient is not on a blood thinning medication. 8. Platelets. The patient's platelet count was about 95,000. 9. Hypertension. The patient is being treated for hypertension. 10. Opioids greater than 6 weeks. The patient received medication from one source, pain clinic of her primary physician. 11. Risk assessment tool, low for opioid use. 12. Functional assessment tool, 46/70. 13. Recreational drug use: [place] [address] PAIN MANAGEMENT CONSULTATION Name: KARYN MCCORMICK Room: [facility]#: [id number] Admission: 02/25/19 Attend Phys: Jenifer Gonzalez MD Discharge: Date of : 56 Report #: [id number] 14. Tobacco: The patient denies. 15. Alcohol: The patient denies use of alcoholic beverages. PHYSICAL EXAMINATION: GENERAL: The patient is a well-developed, well-nourished, morbidly obese white female. Appears her stated age. She is alert and oriented x 3. Her affect is appropriate. Speech is fluent. HEENT: Normocephalic, atraumatic. Extraocular eye muscles intact. NECK: Without adenopathy or JVD. HEART: Regular rate. ABDOMEN: Protuberant. Bowel sounds present. MUSCULOSKELETAL: Upper extremity muscle strength judged to be 5-/5 for the major muscle groups in the upper extremity. The patient has pain and discomfort in the right lateral thigh. This is in the area of the lateral femoral cutaneous nerve. IMPRESSION: 1. Meralgia paresthetica, improved with a lateral femoral cutaneous nerve block on 2 previous occasions. 2. Diabetes. 3. Easy bruising. 4. Low platelets. 5. Asthma. 6. Hypertension. 7. Liver disease. 8. Hepatitis. 9. Gallbladder disease. 10. Colon problems. 11. Arthritis. 12. Cancer. 13. Crohn's disease. 14. Metastatic malignant neuroendocrine tumor to the liver. 15. Morbid obesity. RECOMMENDATIONS: We discussed treatment options with the patient. Risks and benefits of an injection, which could include, but are not limited to infection, worsening of pain, nerve damage, bleeding were discussed and the patient elects to proceed. PROCEDURE NOTE: The patient was taken to the procedure area. She was assisted in getting on the examination table. She was placed supine on the table. Her abdomen was sterilely prepped with a Betadine solution. The right area was cleaned using the chlorhexidine solution. This was allowed to dry. An anterior superior iliac spine area was identified. Palpation in the area of her pain and discomfort was performed. The patient stated this did reproduce pain in the area where she is having her pain and discomfort. A 25-[place] [address] PAIN MANAGEMENT CONSULTATION Name: KARYN MCCORMICK Room: [facility]#: [id number] Admission: 02/25/19 Attend Phys: Jenifer Gonzalez MD Discharge: Date of : 56 Report #: [id number] used to provide a skin wheal. A 22-gauge spinal needle was then used to advance into the area of the discomfort. The patient states that we did have needle placement in the area, which is causing a significant amount of pain. Aspiration was negative. A total of 40 mg triamcinolone and 10 mL of 0.25% bupivacaine was injected. The patient tolerated the procedure well. There were no complications. She remained in the Pain Clinic for an appropriate amount of time. She will follow up in the future as needed. We would like to thank you for letting us participate in her care. We hope she continues to improve. <ELECTRONICALLY SIGNED> By: Jenifer Gonzalez MD 03/12/19 1330 1307 [id number]. Jonny Gonzalez MD /nt
== END | disposition home or self-care (01) ==
LOC: M.PC 04:26
DX: G57.11 Meralgia paresthetica, right lower limb (principal); G89.29 Other chronic pain; I10 Essential (primary) hypertension; E11.9 Type 2 diabetes mellitus without complications; J45.909 Unspecified asthma, uncomplicated; Z87.19 Personal history of other diseases of the digestive system; M19.90 Unspecified osteoarthritis, unspecified site; K50.90 Crohn's disease, unspecified, without complications; K75.9 Inflammatory liver disease, unspecified; E66.01 Morbid (severe) obesity due to excess calories; Z98.890 Other specified postprocedural states; Z79.899 Other long term (current) drug therapy; Z68.41 Body mass index [BMI] 40.0-44.9, adult; Z88.8 Allergy status to other drugs, medicaments and biological substances

== ENCOUNTER 2019-04-08 13:24 | Emergency (ER) | payer BC ==
[~2019-04-08] VITALS: Ht 177.8 cm; Wt 122.5 kg
[2019-04-08 14:30] LABS: ABSOLUTE LYMPHOCYTES 1.3 thou/uL (0.8-5.3); ABSOLUTE MONOCYTES 0.5 thou/uL (0.0-1.2); ABSOLUTE NEUTROPHILS 3.9 thou/uL (1.6-8.1); BASOPHILS 0.8 %; EOSINOPHILS 0.5 %; HEMATOCRIT 35.9 % (37.0-47.0); HEMOGLOBIN 12.8 gm/dL (12.0-15.0); MCH 34.6 pg (26.0-34.0); MCHC 35.8 g/dL (28.0-37.0); MCV 96.7 fL (80.0-100.0); MONOCYTES 9.4 %; MPV 6.8 fl. (7.2-11.1); NUCLEATED RBCS 0 /100WBC; PLATELET COUNT* 121 thou/uL (150-400); POLYS 67.3 %; RBC 3.71 mil/uL (4.20-5.00); RDW-CV 13.7 % (10.5-14.5); WBC 5.7 thou/uL (4.0-11.0)
[2019-04-08 14:35] LABS: BE -0.3 mmol/L (-2 to +3); PCO2 39.6 mmHg (35.0-45.0); PO2 91.6 mmHg (75.0-100.0); pH 7.405 (7.340-7.450)
[2019-04-08 14:38] LABS: CALCIUM 9.3 mg/dL (8.5-10.1); CREATININE 1.1 mg/dL (0.6-1.3)
[2019-04-08 14:43] LABS: ALBUMIN 3.9 g/dL (3.4-5.0); MAGNESIUM 1.7 mg/dL (1.8-2.4); TOTAL BILIRUBIN 0.3 mg/dL (<0.1-1.0); TOTAL PROTEIN 7.9 g/dL (6.4-8.2)
--- NOTE | 2019-04-08 14:44 | EKG ---
[place] [address] ELECTROCARDIOGRAM REPORT Name: KARYN MCCORMICK Room: [facility]#: [id number] Admission: 04/08/19 Attend Phys: Discharge: Date of : 56 Report #: [id number] THIS REPORT FOR: //name// [facility] ED Test Date: 2019-04-08 Test Time: 13:36:02 Pat Name: KARYN MCCORMICK Department: Room: Gender: F Beaming Inspector: MEKHI : 1960 Requested By: Madiha Jackson Order Number: [id number] Reading MD: Ryder Molina Measurements Intervals [place] Rate: 129 P: 68 WA: 160 QRS: 66 QRSD: 80 T: 57 QT: 291 QTc: 427 Interpretive Statements Sinus tachycardia Probable left atrial enlargement Low voltage, precordial leads Borderline T wave abnormalities Compared to ECG 12/04/2018 11:11:59 Low QRS voltage now present Prolonged QT interval no longer present T-wave abnormality still present Electronically Signed On 04-08-2019 14:44:09 ENTRY REP by Ryder Molina [email or web address] <ELECTRONICALLY SIGNED> By: Ryder Molina MD, FACC 04/08/19 1444 1336 1336 Ryder Molina MD, FAC /EPI
[2019-04-08 15:05] LABS: URINE BILIRUBIN NEGATIVE (Negative); URINE BLOOD TRACE (Negative); URINE CLARITY CLEAR; URINE COLOR YELLOW; URINE GLUCOSE-RANDOM NEGATIVE (Negative); URINE KETONES NEGATIVE (Negative); URINE LEUKOCYTES-REFLEX 1+ (Negative); URINE NITRITE-REFLEX NEGATIVE (Negative); URINE PROTEIN NEGATIVE (Negative); URINE SPECIFIC GRAVITY 1.025 (1.005-1.030); URINE UROBILINOGEN 0.2 E.U./dl (0.2-1.0)
[2019-04-08 15:14] LABS: SQUAMOUS >10 Many /LPF (0-3)
[2019-04-08 15:15] LABS: URINE RBC 0-2 Rare /HPF (0-2); URINE WBC-REFLEX 6-15 Few /HPF (0-5)
[2019-04-08 15:17] LABS: MUCUS 4-6 Moderate strn/LPF (None Seen)
[2019-04-08 15:18] LABS: CRYSTALS None Seen /LPF (None Seen); HYALINE CASTS 4-10 Moderate /LPF (None Seen)
[2019-04-08 18:23] VITALS: BP 120/80
== END 2019-04-08 18:24 | disposition home or self-care (01) ==
LOC: M.ERS 13:24
PROVIDERS: Personal Emergency Response Attendant
DX: E86.0 Dehydration (principal); E87.2 Acidosis; J45.909 Unspecified asthma, uncomplicated; I10 Essential (primary) hypertension; Z88.5 Allergy status to narcotic agent; Z88.6 Allergy status to analgesic agent; Z88.8 Allergy status to other drugs, medicaments and biological substances; Z88.1 Allergy status to other antibiotic agents

== ENCOUNTER → 2019-04-17 | Outpatient (CLI) | payer BC ==
[~2019-04-17] MED LIST changes: +TRULICITY1.5 MG/0.5 SUBQ; +ULTRAM 50MG TAB50 MG PO
[2019-04-17 10:25] VITALS: BP 138/77
--- NOTE | 2019-04-17 11:40 | NUR ---
ARRIVED AMBULATORY. MADE SELF COMFORTABLE. SITORY, MEDS AND ALLERGY REVIEWED AND UPDATED. IV STARTED IWTH OUT DIFFICULTY. LABS DRAWN FROM IV SART. INFUSION STARTED AND RUNNIGN WELL. CRITICAL LAB RESULT LACTIC ACID RECIEVED AND CALL TO ORDERING AIRFRAME AND POWERPLANT TECHNICIAN. NEW ORDER RECIEVED TO RUN 2ND LITER BOLUS OF NS. PT WAS UPDATED AND AGREED. INFUSION COMPELTED AND TOELRATED WELL. DENIES QUESTIONS OR NEEDS AT DISCHARGE.
== END ==
LOC: M.INFUS 09:31
DX: C7A.012 Malignant carcinoid tumor of the ileum (principal); C74.02 Malignant neoplasm of cortex of left adrenal gland; E34.0 Carcinoid syndrome

== ENCOUNTER → 2019-04-24 | Outpatient (CLI) | payer BC ==
[2019-04-24 09:50] VITALS: BP 126/78
[2019-04-24 11:30] VITALS: BP 124/74
--- NOTE | 2019-04-24 11:50 | NUR ---
CASSIDY VENTURA OF DR ROMO'S OFFICE RETURNED CALL TO KHALIF VALENZUELA. ORDER RECIEVED TO INSTRUCT PATIENT TO GO TO [facility] "HAS NO AVAILABLE BEDS AT THIS TIME". IV REMOVED PRESSURE HELD AND COTTON BALL WITH COBAN APPLIED. PATIENT INSTRUCTED TO GO TO [facility] PER DR ROMO/CASSIDY VENTURA.
== END ==
LOC: M.INFUS 04:19
DX: R74.0 Nonspecific elevation of levels of transaminase and lactic acid dehydrogenase [LDH] (principal); C7A.012 Malignant carcinoid tumor of the ileum; C7B.02 Secondary carcinoid tumors of liver; E34.0 Carcinoid syndrome

== ENCOUNTER → 2019-05-01 | Outpatient (CLI) | payer BC ==
[2019-05-01 10:12] VITALS: BP 142/87
--- NOTE | 2019-05-01 11:44 | NUR ---
ARRIVED AMBULATORY. MADE SELF COMFORTABLE IN RECLINER. REPORTS FEELING BETTER THAN LAST WEEK BUT DOES FEEL SHAKEY. PT HAS HAD NEW IMPLANTABLE PORT PLACED ON 04/25/19. PORT SITE YELLOW COLOR AND BRUISED WITH SMALL AMOUNT OF SWELLING. PT GIVEN OPTION OF PIV OR PORT ACCESS. PER PT REQUEST, PORT ACCESSED WITH OUT DIFFICULTY. GOOD BRISK BLOOD RETURN NOTED AND FLUSHED WITH EASE. ORDERED LAB DRAWN FROM PORT. CRITICAL LAB RESULT RECIEVED AND CALLED TO DR. ROMO. NEW ORDER RECIEVED TO DO 1L NS TOMORROW ON 05/02, AND 3 TIME NEXT WEEK ON . NO NEW LAB ORDER ONLY FLUIDS. INFUSION COMPLETED FOR TODAY. PT UPDATED. VOICED UNDERSTANDING AND AGREED TO PLAN OF CARE. PORT FLUSHED AND LEFT ACCESSED. DENEIS QUESTIONS OR NEEDS AT DISCHARGE. PT WAS INSTRUCTED TO RETURN TO ED IF NEW SYMPTOMS OR INCREASED SYMPTOMS OF ELEVATED LACTIC ACID.
== END ==
LOC: M.INFUS 04:30
DX: C7A.012 Malignant carcinoid tumor of the ileum (principal); C7B.02 Secondary carcinoid tumors of liver; R74.0 Nonspecific elevation of levels of transaminase and lactic acid dehydrogenase [LDH]; E34.0 Carcinoid syndrome; E86.0 Dehydration; E86.1 Hypovolemia; E86.9 Volume depletion, unspecified; R19.7 Diarrhea, unspecified

== ENCOUNTER → 2019-05-02 | Outpatient (CLI) | payer BC ==
[2019-05-02 13:30] VITALS: BP 132/80
[2019-05-02 14:30] VITALS: BP 128/74
== END ==
LOC: M.INFUS 05:05
DX: C7A.012 Malignant carcinoid tumor of the ileum (principal); C7B.02 Secondary carcinoid tumors of liver; E34.0 Carcinoid syndrome; R74.0 Nonspecific elevation of levels of transaminase and lactic acid dehydrogenase [LDH]; E86.0 Dehydration; E86.1 Hypovolemia; R19.7 Diarrhea, unspecified

== ENCOUNTER → 2019-05-05 | Outpatient (CLI) | payer BC ==
[2019-05-05 13:25] VITALS: BP 133/78
== END ==
LOC: M.INFUS 01:06
DX: E86.0 Dehydration (principal); R74.0 Nonspecific elevation of levels of transaminase and lactic acid dehydrogenase [LDH]; E86.1 Hypovolemia; R19.7 Diarrhea, unspecified

== ENCOUNTER → 2019-05-07 | Outpatient (CLI) | payer BC ==
[2019-05-07 13:30] VITALS: BP 140/95
== END ==
LOC: M.INFUS 01:29
DX: E86.0 Dehydration (principal); R74.0 Nonspecific elevation of levels of transaminase and lactic acid dehydrogenase [LDH]; E86.1 Hypovolemia; R19.7 Diarrhea, unspecified

== ENCOUNTER → 2019-05-09 | Outpatient (CLI) | payer BC ==
[2019-05-09 13:25] VITALS: BP 136/55
[2019-05-09 14:30] VITALS: BP 142/60
--- NOTE | 2019-05-09 16:38 | NUR ---
INFUSION COMPLETED AND TOELRATED WELL. PORT FLUSHED AND DEACCESSED.
== END ==
LOC: M.INFUS 03:31
DX: E86.0 Dehydration (principal); R74.0 Nonspecific elevation of levels of transaminase and lactic acid dehydrogenase [LDH]; E86.1 Hypovolemia; R19.7 Diarrhea, unspecified

== ENCOUNTER → 2019-05-12 | Outpatient (CLI) | payer BC | LOC: M.INFUS 01:38 | DX: E86.0 Dehydration (principal); R74.0 Nonspecific elevation of levels of transaminase and lactic acid dehydrogenase [LDH]; R19.7 Diarrhea, unspecified; E86.1 Hypovolemia ==

== ENCOUNTER → 2019-05-14 | Outpatient (CLI) | payer BC ==
[2019-05-14 13:25] VITALS: BP 133/82
--- NOTE | 2019-05-14 14:36 | NUR ---
PORT PATENT AND FREE FROM SIGN OF INFECTION. INFUSION COMPELTED AND TOELRATED WELL. PORT DEACCESED AT PT REQUEST. DENIES QUESTIONS OR NEEDS AT DISCHARGE.
== END ==
LOC: M.INFUS 00:22
DX: E86.0 Dehydration (principal); E86.1 Hypovolemia; E86.9 Volume depletion, unspecified; R19.7 Diarrhea, unspecified; R74.0 Nonspecific elevation of levels of transaminase and lactic acid dehydrogenase [LDH]

== ENCOUNTER → 2019-05-16 | Outpatient (CLI) | payer BC ==
--- NOTE | 2019-05-29 11:41 | NUR ---
ADDENDUM LATE ENTRY FOR 05/16/19 SODIUM CHLORIDE INFUSION START TIME 1332 STOP TIME 1433
== END ==
LOC: M.INFUS 03:33
DX: E86.0 Dehydration (principal); E86.1 Hypovolemia; E86.9 Volume depletion, unspecified; R19.7 Diarrhea, unspecified

== ENCOUNTER → 2019-05-19 | Outpatient (CLI) | payer BC ==
[2019-05-19 13:35] VITALS: BP 154/84
== END ==
LOC: M.INFUS 03:41
DX: E86.0 Dehydration (principal); R19.7 Diarrhea, unspecified; E86.1 Hypovolemia; R74.0 Nonspecific elevation of levels of transaminase and lactic acid dehydrogenase [LDH]

== ENCOUNTER → 2019-05-21 | Outpatient (CLI) | payer BC ==
[2019-05-21 13:30] VITALS: BP 138/70
--- NOTE | 2019-05-21 14:49 | NUR ---
PORT INTACT AND PATENT. INFUSION COMPLETED AND TOELRATED WELL. PORT FLUSHED AND LEFT ACCESSED. DENIES QUESTIONS OR NEEDS AT DISCHARGE.
== END ==
LOC: M.INFUS 02:08
DX: E86.0 Dehydration (principal); R19.7 Diarrhea, unspecified; E86.1 Hypovolemia; R74.0 Nonspecific elevation of levels of transaminase and lactic acid dehydrogenase [LDH]

== ENCOUNTER → 2019-05-23 | Outpatient (CLI) | payer BC | LOC: M.INFUS 03:59 | DX: E86.0 Dehydration (principal); R74.0 Nonspecific elevation of levels of transaminase and lactic acid dehydrogenase [LDH]; E86.1 Hypovolemia ==

== ENCOUNTER → 2019-05-26 | Outpatient (CLI) | payer BC ==
[2019-05-26 13:25] VITALS: BP 132/74
[2019-05-26 14:30] VITALS: BP 138/80
--- NOTE | 2019-05-26 14:40 | NUR ---
ARRIVED AMBULATORY. MADE SELF COMFORTABLE IN RECLINER. PORT ACCESSED WITH OUT DIFFICULTY. GOOD BRISK BLOOD RETURN AND EASY FLUSH. PT REQUEST NO TEGADERM AND PORT BE DEACCESSED AFTER EACH INFUSION RELATED TO SKIN IRRITATION AND COMFORT.
== END ==
LOC: M.INFUS 02:20
DX: E86.0 Dehydration (principal); R74.0 Nonspecific elevation of levels of transaminase and lactic acid dehydrogenase [LDH]; E86.1 Hypovolemia; R19.7 Diarrhea, unspecified

== ENCOUNTER → 2019-05-28 | Outpatient (CLI) | payer BC ==
[2019-05-28 14:09] VITALS: BP 152/95
== END ==
LOC: M.INFUS 04:27
DX: E86.0 Dehydration (principal); R74.0 Nonspecific elevation of levels of transaminase and lactic acid dehydrogenase [LDH]; E86.1 Hypovolemia; R19.7 Diarrhea, unspecified

== ENCOUNTER → 2019-05-30 | Outpatient (CLI) | payer BC ==
[2019-05-30 11:50] VITALS: BP 132/80
--- NOTE | 2019-05-30 13:04 | NUR ---
ARRIVED AMBULATORY, MADE SELF COMFORTABLE IN RECLINER. PORT ACCESSED ИВАН FAITHIT MAX.; SODIUM CLORIDE START TIME 1155 STOP TIME 1255 WITH 1000ML TOTAL INFUSED. PORT FLUSHEWD AND DEACCESSED.
== END ==
LOC: M.ULTRA 11:10
DX: E04.2 Nontoxic multinodular goiter (principal); E07.9 Disorder of thyroid, unspecified

== ENCOUNTER → 2019-05-30 | Outpatient (CLI) | payer BC | LOC: M.INFUS 03:45 | DX: R74.0 Nonspecific elevation of levels of transaminase and lactic acid dehydrogenase [LDH] (principal) ==

== ENCOUNTER → 2019-06-02 | Outpatient (CLI) | payer BC ==
[2019-06-02 13:30] VITALS: BP 132/78
== END ==
LOC: M.INFUS 01:06
DX: E86.0 Dehydration (principal); R74.0 Nonspecific elevation of levels of transaminase and lactic acid dehydrogenase [LDH]; E86.1 Hypovolemia; R19.7 Diarrhea, unspecified

== ENCOUNTER → 2019-06-04 | Outpatient (CLI) | payer BC ==
[2019-06-04 13:25] VITALS: BP 132/75
== END ==
LOC: M.INFUS 04:46
DX: E86.0 Dehydration (principal); R74.0 Nonspecific elevation of levels of transaminase and lactic acid dehydrogenase [LDH]; E86.1 Hypovolemia; R19.7 Diarrhea, unspecified

== ENCOUNTER → 2019-06-10 | Outpatient (CLI) | payer BC ==
[2019-06-10 15:30] VITALS: BP 140/77
--- NOTE | 2019-06-10 15:38 | NUR ---
Pt to infusion for NS infusion 1000ml, Pt accessed on Right chest side, slight difficulty with blood draw, but went smooth when tilted forward. Infusion in with out difficulty. Started at 1438 and completed at 1538. Flushed with Heprin 500 and de-accessed. Pt ambulated out for discharge at 1545.
== END ==
LOC: M.INFUS 14:03
DX: E86.0 Dehydration (principal); R74.0 Nonspecific elevation of levels of transaminase and lactic acid dehydrogenase [LDH]; C7A.012 Malignant carcinoid tumor of the ileum; C7B.02 Secondary carcinoid tumors of liver; E34.0 Carcinoid syndrome; R19.7 Diarrhea, unspecified; E86.1 Hypovolemia

== ENCOUNTER → 2019-06-13 | Outpatient (CLI) | payer BC ==
[2019-06-13 12:05] VITALS: BP 149/95
[2019-06-13 13:30] VITALS: BP 138/82
== END ==
LOC: M.INFUS 04:01
DX: E86.0 Dehydration (principal); R74.0 Nonspecific elevation of levels of transaminase and lactic acid dehydrogenase [LDH]; E34.0 Carcinoid syndrome; C7A.012 Malignant carcinoid tumor of the ileum; C7B.02 Secondary carcinoid tumors of liver; E86.1 Hypovolemia; R19.7 Diarrhea, unspecified

== ENCOUNTER → 2019-12-31 | Outpatient (CLI) | payer OTHER ==
[~2019-12-31] MED LIST changes: +AMITRIPTYLINE H25 M4 PO; +NEURONTIN300 MG PO
== END ==
LOC: M.RAD 12-26 11:00
PROVIDERS: ATTEND Family Medicine
DX: Z12.31 Encounter for screening mammogram for malignant neoplasm of breast (principal)

== ENCOUNTER → 2020-09-28 | Outpatient (CLI) | payer OTHER, MEDICARE | LOC: M.PC 09:52 | PROVIDERS: ATTEND Anesthesiology Pain Medicine | DX: Z76.0 Encounter for issue of repeat prescription (principal); M25.511 Pain in right shoulder; M25.521 Pain in right elbow; M25.522 Pain in left elbow; M25.551 Pain in right hip; M25.552 Pain in left hip; M25.561 Pain in right knee; M25.562 Pain in left knee; G89.4 Chronic pain syndrome; I10 Essential (primary) hypertension; E11.9 Type 2 diabetes mellitus without complications; F32.9 Major depressive disorder, single episode, unspecified; Z79.899 Other long term (current) drug therapy; Z79.82 Long term (current) use of aspirin; Z79.891 Long term (current) use of opiate analgesic ==

== ENCOUNTER → 2021-01-19 | Outpatient (CLI) | payer OTHER, MEDICARE | LOC: M.RAD 09:50 | PROVIDERS: ATTEND Family Medicine | DX: Z12.31 Encounter for screening mammogram for malignant neoplasm of breast (principal) ==